=== PATIENT | female | born 1955 | race Two or more races ===

== ENCOUNTER 2017-08-06 10:41 | Emergency (ER) | payer SELFPAY ==
[2017-08-06] MEDS ORDERED: NS 1,000 ML IV ONE (11:02)
[2017-08-06 11:17] LABS: % IMMATURE GRANULYOCYTES 0.2 % (0.0-1.1); ABSOLUTE IMMATURE GRANULOCYTES 0.02 10^3/uL (0.00-0.10); ADD DIFF? NO; ADD MORPH? NO; ADD SCAN? NO; ATYPICAL LYMPHOCYTE FLAG 10 (0-99); FRAGMENT RBC FLAG 0 (0-99); HEMATOCRIT 40.5 % (38.0-47.0); LEFT SHIFT FLG 0 (0-99); LIPEMIA HEMOLYSIS FLAG 90 (0-99); MEAN CELL HEMOGLOBIN 30.1 pg (27.9-34.1); MEAN CELL HEMOGLOBIN CONCENTR. 34.6 g/dL (32.4-36.7); MEAN CELL VOLUME 87.1 fL (81.5-99.8); MEAN PLATELET VOLUME 9.8 fL (8.7-11.7); PLATELET CLUMPS FLAG 10 (0-99); PLATELET COUNT 256 10^3/uL (150-400); RED BLOOD CELL COUNT 4.65 10^6/uL (4.18-5.33); RED CELL DISTRIBUTION WIDTH 13.7 % (11.5-15.2)
--- NOTE | 2017-08-06 11:31 | EDPHY ---
H & P Stated Complaint: epigastric pain x 2 days Time Seen by Provider: 08/06/17 10:50 HPI/ROS: CHIEF COMPLAINT: Abdominal pain, nausea, questionable ventral hernia yesterday HISTORY OF PRESENT ILLNESS: The patient presents to the ED with several days of abdominal pain and nausea. The patient reportedly had a bulge in her abdominal wall yesterday which has resolved today. She does have a prior history of hysterectomy. The patient reportedly has a history of cholelithiasis. She otherwise has no prior abdominal surgery. She has not undergone cholecystectomy. The patient currently complains of mild epigastric pain and moderate right lower quadrant pain and tenderness. The patient denies fever, cough or congestion. She denies dysuria. REVIEW OF SYSTEMS: A comprehensive 10 point review of systems is otherwise negative aside from elements mentioned in the history of present illness. Source: Patient Exam Limitations: No limitations - Personal History Current Tetanus/Diphtheria Vaccine: Yes - Medical/Surgical History Hx Asthma: No Hx Chronic Respiratory Disease: No Hx Diabetes: No Hx Cardiac Disease: No Hx Renal Disease: No Hx Cirrhosis: No Hx Alcoholism: No Hx HIV/AIDS: No Hx Splenectomy or Spleen Trauma: No Other PMH: Arthritis, hysterectomy, reported cholelithiasis - Social History Smoking Status: Current every day smoker - Physical Exam Exam: General Appearance: Alert, mild discomfort secondary to pain Eyes: Pupils equal and round no pallor or injection ENT, Mouth: Mucous membranes moist Respiratory: There are no retractions, lungs are clear to auscultation Cardiovascular: Regular rate and rhythm Gastrointestinal: Obese, old surgical scar noted abdomen, no palpable hernia on exam, tenderness to palpation noted in the right lower quadrant with mild rebound Neurological: A&O, normal motor function, normal sensory exam, normal cranial nerves Skin: Warm and dry, no rashes Musculoskeletal: Neck is supple nontender Extremities: symmetrical, full range of motion Constitutional: Initial Vital Signs Temperature (C) 37.1 C 08/06/17 10:45 Heart Rate 67 08/06/17 10:45 Respiratory Rate 18 08/06/17 10:45 Blood Pressure 175/93 H 08/06/17 10:45 O2 Sat (%) 96 08/06/17 10:45 O2 Delivery Mode Room Air Allergies/Adverse Reactions: No Known Allergies Allergy (Unverified 08/06/17 10:44) Home Medications: Medication Instructions Recorded NK [No Known Home Meds] 08/06/17 Medical Decision Making - Diagnostics Imaging Results: Imaging Impressions Abdomen CT 08/06/17 11:31 Impression: 1. No evidence for appendicitis. 2. Cholelithiasis without CT evidence of cholecystitis. Gallbladder ultrasound might be complementary if clinically indicated. 3. Umbilical hernia with dirty fat, possibly inflamed. Correlation with the site of symptoms is recommended. Results called and discussed with Mark Bergman, at 08/06/2017 13:29 General information for patients regarding this examination can be found at [email or web address]. If you have questions or comments about this report, please contact me at (hospital) or [phone] (cell). ED Course/Re-evaluation: The patient presents to the ED with complaints of abdominal pain. The patient was noted to have a possible hernia in her abdominal wall yesterday which reduced spontaneously. Patient continued to have some mild abdominal pain today and also had some mild nausea prompting her visit to the ED. She has pain and tenderness on exam. Given her age in tenderness, she was taken for a CT scan of the abdomen pelvis which demonstrates no evidence of an incarcerated hernia. There is no evidence of appendicitis there is evidence of cholelithiasis without obvious cholecystitis. The patient underwent serial examinations in the ED and had marked improvement of her tenderness. At 2:30 p.m. I find no right lower quadrant tenderness on exam. She has nothing to suggest acute cholecystitis. She has minimal periumbilical tenderness. I suspect her acute abdominal pain is secondary to a ventral hernia which reduced yesterday. She has some fat stranding in the area of her ventral hernia which is likely inflamed. There is no radiographic evidence of an incarcerated or strangulated hernia. I see no indication for an acute surgical intervention. At this point time, the patient is declining any pain medications and would like to be discharged home. The patient will be advised to follow up with our general surgeon Dr. Lai. She should return to the ED for signs and symptoms of an incarcerated or strangulated hernia, for fever, vomiting, worsening symptoms or other concerns. Differential Diagnosis: Differential diagnosis considered includes cholecystitis, pancreatitis, nephrolithiasis, pyelonephritis, incarcerated hernia, mesenteric adenitis - Data Points Laboratory Results: Laboratory Results 08/06/17 11:10 08/06/17 11:10 08/06/17 08/06/17 08/06/17 11:35 11:10 11:10 WBC 8.30 10^3/uL 10^3/uL (3.80-9.50) RBC 4.65 10^6/uL 10^6/uL (4.18-5.33) Hgb 14.0 g/dL g/dL (12.6-16.3) POC Hgb Hct 40.5 % % (38.0-47.0) POC Hct MCV 87.1 fL fL (81.5-99.8) MCH 30.1 pg pg (27.9-34.1) MCHC 34.6 g/dL g/dL (32.4-36.7) RDW 13.7 % % (11.5-15.2) Plt Count 256 10^3/uL 10^3/uL (150-400) MPV 9.8 fL fL (8.7-11.7) Neut % (Auto) 53.2 % % (39.3-74.2) Lymph % (Auto) 36.0 % % (15.0-45.0) [place] % (Auto) 6.7 % % (4.5-13.0) Eos % (Auto) 3.4 % % (0.6-7.6) Baso % (Auto) 0.5 % % (0.3-1.7) Nucleat RBC Rel Count 0.0 % % (0.0-0.2) Absolute Neuts (auto) 4.41 10^3/uL 10^3/uL (1.70-6.50) Absolute Lymphs (auto) 2.99 10^3/uL 10^3/uL (1.00-3.00) Absolute Monos (auto) 0.56 10^3/uL 10^3/uL (0.30-0.80) Absolute Eos (auto) 0.28 10^3/uL 10^3/uL (0.03-0.40) Absolute Basos (auto) 0.04 10^3/uL 10^3/uL (0.02-0.10) Absolute Nucleated RBC 0.00 10^3/uL 10^3/uL (0-0.01) Immature Gran % 0.2 % % (0.0-1.1) Immature Gran # 0.02 10^3/uL 10^3/uL (0.00-0.10) POC Sodium Sodium 144 mEq/L mEq/L (134-144) POC Potassium Potassium 4.1 mEq/L mEq/L (3.5-5.2) POC Chloride Chloride 106 mEq/L mEq/L (97-110) Carbon Dioxide 26 mEq/l mEq/l (22-31) Anion Gap 12 mEq/L mEq/L (8-16) POC BUN BUN 16 mg/dL mg/dL (7-23) Creatinine 0.8 mg/dL mg/dL (0.6-1.0) POC Creatinine Estimated GFR > 60 Glucose 91 mg/dL mg/dL (70-100) POC Glucose Calcium 9.6 mg/dL mg/dL (8.5-10.4) Total Bilirubin 0.4 mg/dL mg/dL (0.1-1.4) Conjugated Bilirubin 0.0 mg/dL mg/dL (0.0-0.5) Unconjugated Bilirubin 0.4 mg/dL mg/dL (0.0-1.1) AST 30 IU/L IU/L (14-46) ALT 43 IU/L IU/L (9-52) Alkaline Phosphatase 68 IU/L IU/L (38-126) Total Protein 6.5 g/dL g/dL (6.3-8.2) Albumin 4.2 g/dL g/dL (3.5-5.0) Lipase 87 IU/L IU/L (23-300) Urine Color YELLOW Urine Appearance CLEAR Urine pH 6.0 (5.0-7.5) Ur Specific [place] 1.008 (1.002-1.030) Urine Protein NEGATIVE (NEGATIVE) Urine Ketones NEGATIVE (NEGATIVE) Urine Blood 3+ H (NEGATIVE) Urine Nitrate NEGATIVE (NEGATIVE) Urine Bilirubin NEGATIVE (NEGATIVE) Urine Urobilinogen NEGATIVE EU EU (0.2-1.0) Ur Leukocyte Esterase NEGATIVE (NEGATIVE) Urine RBC 5-10 /hpf H /hpf (0-3) Urine WBC 1-3 /hpf /hpf (0-3) Ur Epithelial Cells TRACE /lpf /lpf (NONE-1+) Urine Bacteria 1+ /hpf H /hpf (NONE SEEN) Urine Mucus TRACE /lpf /lpf (NONE-1+) Urine Glucose NEGATIVE (NEGATIVE) 11/18/17 11:07 WBC RBC Hgb POC Hgb 14.6 gm/dL gm/dL (12.6-16.3) Hct POC Hct 43 % % (38-47) MCV MCH MCHC RDW Plt Count MPV Neut % (Auto) Lymph % (Auto) [place] % (Auto) Eos % (Auto) Baso % (Auto) Nucleat RBC Rel Count Absolute Neuts (auto) Absolute Lymphs (auto) Absolute Monos (auto) Absolute Eos (auto) Absolute Basos (auto) Absolute Nucleated RBC Immature Gran % Immature Gran # POC Sodium 143 mEq/L mEq/L (134-144) Sodium POC Potassium 3.8 mEq/L mEq/L (3.3-5.0) Potassium POC Chloride 107 mEq/L mEq/L (97-110) Chloride Carbon Dioxide Anion Gap POC BUN 16 mg/dL mg/dL (7-23) BUN Creatinine POC Creatinine 0.8 mg/dL mg/dL (0.6-1.0) Estimated GFR Glucose POC Glucose 92 mg/dL mg/dL (70-100) Calcium Total Bilirubin Conjugated Bilirubin Unconjugated Bilirubin AST ALT Alkaline Phosphatase Total Protein Albumin Lipase Urine Color Urine Appearance Urine pH Ur Specific [place] Urine Protein Urine Ketones Urine Blood Urine Nitrate Urine Bilirubin Urine Urobilinogen Ur Leukocyte Esterase Urine RBC Urine WBC Ur Epithelial Cells Urine Bacteria Urine Mucus Urine Glucose Medications Given: Discontinued Medications Sodium Chloride (Ns) 1,000 mls @ 0 mls/hr IV EDNOW ONE; Wide Open PRN Reason: Protocol Stop: 08/06/17 11:03 Last Admin: 08/06/17 11:16 Dose: 1,000 mls Ketorolac Tromethamine (Toradol) 30 mg IVP EDNOW ONE Stop: 08/06/17 13:57 Last Admin: 08/06/17 14:26 Dose: Not Given Ondansetron HCl (Zofran) 4 mg IVP EDNOW ONE Stop: 08/06/17 13:57 Last Admin: 08/06/17 14:26 Dose: Not Given Point of Care Test Results: 08/06/17 11:07 POC Sodium 143 POC Potassium 3.8 POC Chloride 107 POC BUN 16 POC Creatinine 0.8 POC Glucose 92 Departure - Departure Disposition: Home, Routine, Self-Care Clinical Impression: Abdominal pain, Ventral hernia Condition: Good Instructions: Ventral Hernia (ED) Additional Instructions: 1. Return to the emergency department if you notice a recurrent hernia in your abdominal wall, for severely worsening pain, fever or other concerns. 2. Please schedule a follow-up appointment with the general surgeon you have been referred to. 3. Take Ibuprofen or Motrin 600 mg by mouth three times a day. 4. Zofran as needed for nausea Referrals: Jarret Lai MD [Medical Doctor] - As per Instructions
[2017-08-06 11:35] LABS: ALANINE AMINOTRANSFERASE 43 IU/L (9-52); ALBUMIN 4.2 g/dL (3.5-5.0); ALKALINE PHOSPHATASE 68 IU/L (38-126); ANION GAP 12 mEq/L (8-16); ASPARTATE AMINOTRANSFERASE 30 IU/L (14-46); BILIRUBIN,TOTAL 0.4 mg/dL (0.1-1.4); BILIRUBIN-UNCONJUGATED 0.4 mg/dL (0.0-1.1); CALCIUM 9.6 mg/dL (8.5-10.4); CARBON DIOXIDE 26 mEq/l (22-31); CHLORIDE 106 mEq/L (97-110); CREATININE 0.8 mg/dL (0.6-1.0); GLOMERULAR FILTRATION RATE > 60; GLUCOSE 91 mg/dL (70-100); POTASSIUM 4.1 mEq/L (3.5-5.2); SODIUM 144 mEq/L (134-144); TOTAL PROTEIN 6.5 g/dL (6.3-8.2)
[2017-08-06] MEDS ORDERED: IOPAMIDOL (ISOVUE-300) 100 ML BTL ONE (11:40)
[2017-08-06 12:17] LABS: COLOR YELLOW; LEUKOCYTE ESTERASE,URINE NEGATIVE (NEGATIVE); NITRITE,URINE NEGATIVE (NEGATIVE)
[2017-08-06 12:20] LABS: BACTERIA 1+ /hpf (NONE SEEN); MUCUS TRACE /lpf (NONE-1+)
[2017-08-06] MEDS ORDERED: ONDANSETRON 4 MG/2 ML VIAL IVP ONE (13:56)
[2017-08-06] MEDS ORDERED: KETOROLAC 30 MG/1 ML SDV IVP ONE (13:56)
[2017-08-06 14:53] VITALS: BP 156/81; PULSE 82; RESP 16; TEMP 98.6; O2SAT 95
== END 2017-08-06 14:51 | disposition home or self-care (01) ==
DX: K43.9 Ventral hernia without obstruction or gangrene (principal); F17.200 Nicotine dependence, unspecified, uncomplicated; Z90.710 Acquired absence of both cervix and uterus
CPT/HCPCS: 82947-QW; J1885; Q9967